=== PATIENT | female | born 1960 | race Caucasian/White ===

== ENCOUNTER 2016-11-09 17:17 | Emergency (ER) | payer MEDICARE ==
[~2016-11-09 17:17] MED LIST: Iopamidol 370 76% 100 ML VIAL ONE
[2016-11-09] MEDS ORDERED: Ondansetron HCl/PF 4 MG/2 ML Vial ONE ×2 (17:24→20:22)
[2016-11-09 18:13] LABS: #Basophils 0.1 thou/uL (0.0-0.2); #Eosinphils 0.1 thou/uL (0.0-0.7); #Lymphocytes 2.3 thou/uL (1.20-3.40); #Monocytes 0.6 thou/uL (0.11-0.59); #Neutrophils 5.2 thou/uL (1.40-6.50); %Basophils 1.3 % (0.0-1.0); %Eosinophils 1.6 % (0.0-10.0); %Lymphocytes 27.7 % (21.0-51.0); %Monocytes 7.1 % (0.0-10.0); %Neutrophils 62.3 % (42.0-75.0); Mean Corpuscular HGB CONC 32.5 g/dL (32.0-36.0); Mean Corpuscular Hemoglobin 28.6 pg (27.0-31.0); Mean Corpuscular Volume 88.1 fl (81.0-99.0); Mean Platelet Volume 6.7 fL (7.4-10.4); Platelet Count 215 thou/uL (130-400); RBC Distribution Width 13.2 % (11.5-14.5); White Blood Cell (WBC) Count 8.4 thou/uL (4.8-10.8)
[2016-11-09] MEDS ORDERED: Fentanyl 100 MCG/2 ML VIAL ONE ×2 (18:13→20:19)
[2016-11-09 18:15] LABS: ALT (SGPT) 19 U/L (8-55); AST (SGOT) 21 U/L (5-34); Albumin 3.9 g/dL (3.5-5.0); Alkaline Phosphatase 96 U/L (40-150); Anion Gap 15 mmol/L (10-20); BUN (Urea Nitrogen) 15 mg/dL (9.8-20.1); Bilirubin, Total 0.3 mg/dL (0.2-1.2); CK (CPK) 57 U/L (29-168); Calc. Creatinine Clearance 0 mL/min (70-130); Calcium 9.3 mg/dL (7.8-10.44); Carbon Dioxide 19 mmol/L (22-29); Chloride 115 mmol/L (98-107); Estimated GFR-MDRD 50; Globulin 2.7 g/dL (2.4-3.5); Glucose 128 mg/dL (70-105); Lipase 40 U/L (8-78); Potassium 3.9 mmol/L (3.5-5.1); Protein, Total 6.6 g/dL (6.0-8.3); Sodium 145 mmol/L (136-145)
[2016-11-09 18:16] LABS: CKMB 1.2 ng/mL (0-6.6); Troponin I Less than 0.010 ng/mL (< 0.028)
[2016-11-09] MEDS ORDERED: Sodium Chloride 0.9% 1,000 ML ONE (18:56)
[2016-11-09 19:02] LABS: Bilirubin Small (Negative); Blood, Urine Negative (Negative); Glucose, Urine (Dipstick) Negative (Negative); Leukocyte Negative (Negative); Nitrite Negative (Negative); Urobilinogen 0.2 mg/dL (0.2-1.0); pH, Urine 5.5 (5.0-9.0)
[2016-11-09 19:10] LABS: Clarity SL HASZY (Clear); Protein, Urine (Dipstick) Trace mg/dL (Neg-Trace)
[2016-11-09] MEDS ORDERED: Morphine Sulfate 2 MG/ML SYRINGE ONE (20:05)
--- NOTE | 2016-11-09 20:08 | RAD ---
ABDOMEN TWO VIEWS CHEST ONE VIEW 11/09/16 HISTORY: 56-year-old female with mid abdominal pain for one hour. No significant acute process in the chest. There are some minimally dilated loops of small bowel in the primarily right side of the abdomen cazares sing concern for partial small bowel obstruction or some focal ileus. There is gas and fecal materia l in the colon. Right upper quadrant surgical clips. IMPRESSION: Several minimally dilated loops of small bowel in the right lower mid abdomen, nonspecific. Possibil ities include that of a partial small bowel obstruction versus some focal ileus. Gas and fecal mater ial in the colon. No free intraperitoneal air or overt calculus. No acute intrathoracic disease. POS: [facility]
--- NOTE | 2016-11-09 21:54 | CT ---
CT OF ABDOMEN AND PELVIS WITH CONTRAST: \E\ 11/09/16 CLINICAL HISTORY: Abdominal pain. No prior imaging comparisons. FINDINGS: There is prominent mesenteric edema with associated swirling in mesentery and torsed appearance of u nopacified small bowel of the central low abdomen. There is anastomotic suture involving small bowel of this region. There is prior cholecystectomy without evidence of reservoir effect. No focal hepat ic or splenic lesion. No peripancreatic inflammation. There are bilateral renal hypodensities indica ting cysts. No adrenal mass. Mild volume loss seen at the lung bases. There is no disseminated free air. Abdominal aorta is normal in caliber. IMPRESSION: Abnormal swirling of the mesentery and small bowel. The small bowel in this region is unopacified li miting assessment. There is no pathologic dilatation of the bowel, although given the morphologic ap pearance, and the prominent degree of surrounding mesenteric edema, these findings are indicative of an internal hernia. Recommend surgical consultation on an urgent basis for further evaluation. Notification of findings placed at 2122 hours, 11/09/16. Code CR POS: [id number]
== END 2016-11-09 22:23 | disposition short-term general hospital (02) ==
LOC: NAV ERS 17:17
DX: K46.9 Unspecified abdominal hernia without obstruction or gangrene (principal); E66.9 Obesity, unspecified; F31.9 Bipolar disorder, unspecified; Z79.899 Other long term (current) drug therapy
CPT/HCPCS: 74022; 74177; 80053; 81003; 82150; 82550; 82553; 83690; 84484; 85025; 93005; 96361; 96374; 96375; 96376; J2270; J2405; J3010; J7050

== ENCOUNTER 2019-09-23 06:46 | Emergency (ER) | payer MEDICARE, OTHER ==
[2019-09-23] MEDS ORDERED: Lidocaine 1% (PF) 30 ML VIAL ONE (06:56)
[2019-09-23] MEDS ORDERED: Adacel (T-DAP) 0.5 ML SYRINGE ONE (07:03)
[2019-09-23] MEDS ORDERED: Bacitracin 1 PK ONE (07:38)
== END 2019-09-23 07:40 | disposition home or self-care (01) ==
LOC: NAV ERS 06:46
DX: S01.81XA Laceration without foreign body of other part of head, initial encounter (principal); G43.909 Migraine, unspecified, not intractable, without status migrainosus; F41.9 Anxiety disorder, unspecified; F31.9 Bipolar disorder, unspecified; Z79.899 Other long term (current) drug therapy; W18.30XA Fall on same level, unspecified, initial encounter
CPT/HCPCS: 12013; 90471; 90715; 99001; J2001

== ENCOUNTER 2019-09-30 13:52 | Emergency (ER) | payer MEDICARE, OTHER | END 2019-09-30 14:15 | disposition home or self-care (01) | LOC: NAV ERS 13:52 | DX: S01.81XD Laceration without foreign body of other part of head, subsequent encounter (principal); G43.909 Migraine, unspecified, not intractable, without status migrainosus; Z79.899 Other long term (current) drug therapy; X58.XXXD Exposure to other specified factors, subsequent encounter ==

== ENCOUNTER 2020-06-19 16:27 | Emergency (ER) | payer MEDICARE | END 2020-06-19 17:55 | disposition home or self-care (01) | LOC: NAV ERS 16:27 | DX: S13.9XXA Sprain of joints and ligaments of unspecified parts of neck, initial encounter (principal); S29.012A Strain of muscle and tendon of back wall of thorax, initial encounter; S40.012A Contusion of left shoulder, initial encounter; G43.909 Migraine, unspecified, not intractable, without status migrainosus; Z79.899 Other long term (current) drug therapy; W18.09XA Striking against other object with subsequent fall, initial encounter | CPT/HCPCS: 72125; 72128 ==

== ENCOUNTER 2021-10-02 15:25 | Emergency (ER) | payer MEDICARE, OTHER ==
[2021-10-02] MEDS ORDERED: Ondansetron PF 4 MG/2 ML Vial ONE (16:20)
[2021-10-02] MEDS ORDERED: Morphine 4 MG/ML VIAL ONE (16:20)
[2021-10-02 16:33] LABS: #Basophils 0.1 thou/uL (0.0-0.2); #Eosinphils 0.1 thou/uL (0.0-0.7); #Lymphocytes 1.8 thou/uL (1.20-3.40); #Monocytes 0.5 thou/uL (0.11-0.59); %Eosinophils 1.3 % (0.0-10.0); %Lymphocytes 27.9 % (21.0-51.0); %Neutrophils 61.7 % (42.0-75.0); Hemoglobin 13.2 g/dL (12.0-16.0); Mean Corpuscular HGB CONC 30.5 g/dL (32.0-36.0); Mean Corpuscular Hemoglobin 27.5 pg (27.0-31.0); Mean Corpuscular Volume 90.2 fL (78.0-98.0); Platelet Count 217 thou/uL (130-400); RBC Distribution Width 14.8 % (11.5-14.5); Red Blood Cell (RBC) Count 4.81 mill/uL (4.20-5.40); White Blood Cell (WBC) Count 6.5 thou/uL (4.8-10.8)
[2021-10-02 16:48] LABS: ALT (SGPT) 18 U/L (8-55); AST (SGOT) 18 U/L (5-34); Albumin 3.8 g/dL (3.4-4.8); Alkaline Phosphatase 66 U/L (40-110); Anion Gap 17 mmol/L (10-20); BUN (Urea Nitrogen) 19 mg/dL (9.8-20.1); Bilirubin, Total 0.3 mg/dL (0.2-1.2); Calc. Creatinine Clearance 0 mL/min (70-130); Calcium 9.2 mg/dL (7.8-10.44); Carbon Dioxide 22 mmol/L (23-31); Chloride 109 mmol/L (98-107); Estimated GFR 76; Globulin 2.1 g/dL (2.4-3.5); Glucose 94 mg/dL (80-115); Potassium 3.5 mmol/L (3.5-5.1); Protein, Total 5.9 g/dL (5.8-8.1); Sodium 144 mmol/L (136-145)
[2021-10-02 16:57] LABS: Bilirubin Moderate (Negative); Blood, Urine Negative (Negative); Glucose, Urine (Dipstick) Negative (Negative); Ketone, Urine 80 mg/dL (Negative); Leukocyte Negative (Negative); Nitrite Negative (Negative); Protein, Urine (Dipstick) Trace mg/dL (Neg-Trace); pH, Urine 5.5 (5.0-9.0)
[2021-10-02 16:58] LABS: Clarity SL HAZY (Clear); Specific Gravity, Urine 1.033 (1.002-1.036)
[2021-10-02] MEDS ORDERED: Morphine 4 MG/ML VIAL SLOW IVP SCH (18:45)
[2021-10-02] MEDS ORDERED: Methocarbamol 500 MG TAB PO SCH (19:00)
== END 2021-10-02 19:05 | disposition home or self-care (01) ==
LOC: NAV ERS 15:25
DX: M51.36 Other intervertebral disc degeneration, lumbar region (principal); G43.909 Migraine, unspecified, not intractable, without status migrainosus; Z79.899 Other long term (current) drug therapy
CPT/HCPCS: 72131; 74177; 80053; 81003; 85025; 96374; 96375; J2270; J2405; Q9967